=== PATIENT | male | born 1965 | race Caucasian/White ===

== ENCOUNTER → 2025-02-26 08:38 | Outpatient (REF) | payer OTHER, SELFPAY | LOC: RAD 08:38 | PROVIDERS: ATTENDING PHYSICIAN Internal Medicine Endocrinology, Diabetes & Metabolism; FAMILY PHYSICIAN Family Medicine | DX: E21.3 Hyperparathyroidism, unspecified (principal) | CPT/HCPCS: 78071; A9500 ==